=== PATIENT | female | born 1960 | race Caucasian/White ===

== ENCOUNTER 2021-10-13 06:46 | Outpatient (CLI) | payer BC ==
[~2021-10-13] VITALS: Ht 170.2 cm; Wt 99.5 kg
[~2021-10-13 06:46] MED LIST: FOLIC ACID PO; PHENERMINE PO; SYNTHROID; SYNTHROID0.137 MG PO; TOPAMAX50 MG PO; VICODIN 5/5001 UDTAB PO; VITAMIN C250250 MG PO; ZOCOR 20MG20 MG PO
[2021-10-13] MEDS ORDERED: SYNTHROID0.175 MG PO (07:27)
[2021-10-13] MEDS ORDERED: FENOGLIDE120 MG PO (07:27)
[2021-10-13 07:36] VITALS: BP 113/71; PULSE 84
[2021-10-13] MEDS ORDERED: ASPIRIN 81M81 MG/TA2 PO (08:07)
[2021-10-13 08:12] LABS: HEMOGLOBIN 11.7 g/dl (12.5-16.0); MEAN CELL VOLUME 103 fl (80.0-100.0); MEAN CORPUSCULAR HEMOGLOBIN 36 pg (27-31); MEAN CORPUSCULAR HGB CONC 35 g/dl (33.0-37.0); MEAN PLATELET VOLUME 12.1 fl (7.4-10.4); PLATELET COUNT 108 K/mm3 (130-400); RED BLOOD COUNT 3.24 M/mm3 (4.10-5.30); REDCELL DISTRIBUTION WIDTH-CV 13.8 % (11.5-14.5)
[2021-10-13 08:25] LABS: HEMATOCRIT 33.2 % (37.0-47.0)
[2021-10-13 09:30] VITALS: BP 120/74; PULSE 86; TEMP 97.3
--- NOTE | 2021-10-13 09:30 | NUR ---
PATIENT ARRIVES TO ROOM 7 VIA CART. SHE IS ALERT AND ORIENTED. AT BEDSIDE. VITAL SIGNS WNL. DRESSING IS DRY AND INTACT. SHE DENIES ANY PAIN OR NAUSEA AND REQUESTS TOAST AND PEPSI. WILL CONTINUE TO MONITOR.
[2021-10-13 09:45] VITALS: BP 107/66; PULSE 75
--- NOTE | 2021-10-13 09:45 | NUR ---
VITAL SIGNS WNL. PATIENT TOLERATED TOAST AND PEPSI WELL. DENIES ANY NAUSEA. WILL CONTINUE TO MONITOR.
[2021-10-13 10:00] VITALS: BP 113/68; PULSE 76
--- NOTE | 2021-10-13 10:00 | NUR ---
PATIENT IS READY FOR DISCHARGE. FINAL SET OF VITAL SIGNS WNL. DISCHARGE INSTRUCTIONS REVIEWED WITH PATIENT AND . IV DISCONTINUED. PATIENT IS GETTING DRESSED AND I WILL WHEEL HER DOWNSTAIRS WHEN SHE IS READY.
[2021-10-13 10:51] LABS: BAND 1 % (0-10); EOSINOPHIL 1 % (0-4); LYMPHOCYTE 74 % (20.0-51.0); NEUTROPHILS 18 % (42.0-75.2)
[2021-10-13 10:52] LABS: OVALOCYTES 1+; PLATELET ESTIMATE DECREASED (NORMAL); TEAR DROP CELLS 1+
== END 2021-10-13 10:08 | disposition home or self-care (01) ==
LOC: SDCO 06:46
PROVIDERS: Pathology Anatomic Pathology & Clinical Pathology
DX: D46.9 Myelodysplastic syndrome, unspecified (principal); D70.9 Neutropenia, unspecified; F17.210 Nicotine dependence, cigarettes, uncomplicated
CPT/HCPCS: J2704; J7120

== ENCOUNTER → 2022-07-15 | Outpatient (CLI) | payer OTHER ==
[~2022-07-15] MED LIST changes: +ASPIRIN 81M81 MG/TA2 PO; +FENOGLIDE120 MG PO; +SYNTHROID0.175 MG PO
== END ==
LOC: COL.LAB 10:30 → COL.RAD 10:38 → COL.LAB 10:38
DX: M47.816 Spondylosis without myelopathy or radiculopathy, lumbar region (principal)

== ENCOUNTER → 2023-07-21 | Outpatient (CLI) | payer OTHER | LOC: MC.RAD 06:49 | DX: R92.0 Mammographic microcalcification found on diagnostic imaging of breast (principal) ==